=== PATIENT | male | born 2000 | race Caucasian/White ===

== ENCOUNTER 2023-03-20 03:02 | Emergency (ER) | payer BC ==
[2023-03-20] MEDS ORDERED: Acetaminophen 500 MG TAB ONE (03:26)
[2023-03-20] MEDS ORDERED: Ibuprofen 200 MG TAB ONE (03:27)
[2023-03-20] MEDS ORDERED: Boostrix 0.5 ML (Tdap) VIAL (>/=7 yrs of age) ONE (03:27)
[2023-03-20] MEDS ORDERED: CEFAZOLIN 2 GM VIAL ONE (05:13)
[2023-03-20] MEDS ORDERED: Sterile Water 10 ML ONE (05:14)
== END 2023-03-20 05:22 | disposition home or self-care (01) ==
LOC: ERS 03:02
DX: S60.551A Superficial foreign body of right hand, initial encounter (principal); F17.290 Nicotine dependence, other tobacco product, uncomplicated; Z23 Encounter for immunization
CPT/HCPCS: 90471; 90715; 96372